=== PATIENT | female | born 1980 | race Caucasian/White ===

== ENCOUNTER 2020-04-22 14:50 | Outpatient (CLI) | payer OTHER | END 2020-04-22 14:51 | disposition home or self-care (01) | LOC: DTY/OP 14:50 | PROVIDERS: ATTEND Specialist | DX: Z01.818 Encounter for other preprocedural examination (principal); E66.01 Morbid (severe) obesity due to excess calories | CPT/HCPCS: 97802 ==

== ENCOUNTER 2020-07-30 10:30 | Inpatient (IN) | payer OTHER ==
[2020-08-03 13:43] VITALS: BMI 35.4
[2020-08-04] MEDS ORDERED: cefOXitin Sodium/Dextrose 2 GM/50 ML BAG ONE (05:56)
[2020-08-04] MEDS ORDERED: Ketorolac Tromethamine 30 MG/ML VIAL ONE (05:56)
[2020-08-04] MEDS ORDERED: Heparin 5,000 UNITS/ML VIAL ONE (05:56)
[2020-08-04] MEDS ORDERED: Scopolamine 1.5 mg/72 hour Patch ONE (05:56)
[2020-08-04] MEDS ORDERED: Acetaminophen 500 MG TAB ONE (05:56)
[2020-08-04] MEDS ORDERED: Fentanyl 100 MCG/2 ML VIAL ONE ×4 (06:42→14:07)
[2020-08-04] MEDS ORDERED: Ketamine 50 MG/ML (10ML VIAL) ONE (06:42)
[2020-08-04] MEDS ORDERED: SUGAMMADEX SODIUM 200 MG/2 ML VIAL ONE (06:43)
[2020-08-04] MEDS ORDERED: Dexmedetomidine 200 MCG/2 ML VIAL ONE (06:43)
[2020-08-04] MEDS ORDERED: Lidocaine 1% w/Epinephrine 1:100K 20 ML VIAL ONE (06:45)
[2020-08-04] MEDS ORDERED: Bupivacaine 0.25% HCL 30 ML VIAL ONE (06:45)
[2020-08-04] MEDS ORDERED: Propofol 500 MG/50 ML VIAL ONE (07:18)
[2020-08-04] MEDS ORDERED: Propofol 1,000 MG/100 ML VIAL IV ONE ×2 (07:18→08:21)
[2020-08-04] MEDS ORDERED: Midazolam HCl 2 mg/2 ml Vial ONE (07:21)
[2020-08-04] MEDS ORDERED: ePHEDrine Sulfate 50 MG/10 ML VIAL ONE (07:30)
[2020-08-04] MEDS ORDERED: Dexamethasone 20 MG/5 ML VIAL ONE (07:30)
[2020-08-04] MEDS ORDERED: Rocuronium Bromide 10 MG/ML (10ML VIAL) ONE (07:30)
[2020-08-04] MEDS ORDERED: PROPOFOL 200 MG/20 ML VIAL ONE (07:30)
[2020-08-04] MEDS ORDERED: Glycopyrrolate 0.2 MG/ML 5 ML SYRINGE ONE (07:30)
[2020-08-04] MEDS ORDERED: Ondansetron PF 4 MG/2 ML Vial ONE ×2 (07:30→10:21)
[2020-08-04] MEDS ORDERED: Lidocaine 1% PF 5 ML VIAL ONE (07:30)
[2020-08-04] MEDS ORDERED: Ondansetron HCl/PF 4 MG/2 ML Vial IVP PRN (08:15)
[2020-08-04] MEDS ORDERED: HYDROmorphone 2 MG/ML VIAL SLOW IVP PRN (08:15)
[2020-08-04] MEDS ORDERED: Promethazine HCl 25 MG/ML VIAL SLOW IVP PRN (08:15)
[2020-08-04] MEDS ORDERED: diphenhydrAMINE 50 MG/ML VIAL IVP PRN (10:03)
[2020-08-04] MEDS ORDERED: Morphine 4 MG/ML VIAL SLOW IVP PRN ×3 (10:03→15:49)
[2020-08-04] MEDS ORDERED: Ondansetron PF 4 MG/2 ML Vial IVP PRN (10:03)
[2020-08-04] MEDS ORDERED: Dextrose 5% in Water 1,000 ML IV PRN (10:03)
[2020-08-04] MEDS ORDERED: Morphine 2 MG/ML VIAL SLOW IVP PRN (10:03)
[2020-08-04] MEDS ORDERED: hydrALAZINE 20 MG/ML VIAL SLOW IVP PRN (10:03)
[2020-08-04] MEDS ORDERED: Dextrose 50% Abboject 50 ML SYRINGE SLOW IVP PRN (10:03)
[2020-08-04] MEDS ORDERED: Hydrocodone-Acetamin 15 ML UDCUP PO PRN (10:03)
[2020-08-04] MEDS ORDERED: Promethazine HCl 25 MG/ML VIAL IM PRN (10:03)
[2020-08-04] MEDS ORDERED: Promethazine HCl 25 MG/ML VIAL ONE ×2 (10:25→13:41)
[2020-08-04] MEDS ORDERED: Pantoprazole 40 MG VIAL IVP SCH (10:30)
[2020-08-04] MEDS ORDERED: HYDROmorphone 2 MG/ML VIAL ONE (10:54)
[2020-08-04] MEDS ORDERED: Fentanyl 100 MCG/2 ML VIAL SLOW IVP PRN (15:36)
[2020-08-04] MEDS: Ketorolac Tromethamine 30 MG/ML VIAL IVP SCH ×3 (17:02→18:46)
[2020-08-04] MEDS: Ondansetron PF 4 MG/2 ML Vial IVP PRN ×2 (17:03→21:16)
[2020-08-04] MEDS: D5 1/2 NS w/20 mEq KCL 1,000 ML IV SCH ×2 (17:09→18:46)
[2020-08-04] MEDS ORDERED: Enoxaparin Sodium 40 MG/0.4 ML SYRINGE SC SCH (21:00)
[2020-08-04] MEDS ORDERED: Simethicone Chewable 80 MG TAB PO PRN (21:37)
[2020-08-05] MEDS: Ketorolac Tromethamine 30 MG/ML VIAL IVP SCH ×4 (00:11→05:55)
[2020-08-05] MEDS: D5 1/2 NS w/20 mEq KCL 1,000 ML IV SCH ×2 (00:12→08:14)
[2020-08-05 06:30] LABS: MDiff Complete? YES; Microcytosis SLIGHT = 6-15 cells (100X) (0-5/hpf)
[2020-08-05 06:31] LABS: #Lymphocytes 1.2 thou/uL (1.20-3.40); #Monocytes 0.8 thou/uL (0.11-0.59); #Neutrophils 9.5 thou/uL (1.40-6.50); %Basophils 0.2 % (0.0-1.0); %Lymphocytes 10.6 % (21.0-51.0); %Monocytes 7.3 % (0.0-10.0); %Neutrophils 81.9 % (42.0-75.0); Hemoglobin 9.9 g/dL (12.0-16.0); Mean Corpuscular HGB CONC 31.1 g/dL (32.0-36.0); Mean Corpuscular Hemoglobin 22.6 pg (27.0-31.0); Mean Corpuscular Volume 72.9 fL (78.0-98.0); Mean Platelet Volume 9.2 fL (7.4-10.4); Platelet Count 247 thou/uL (130-400); RBC Distribution Width 16.4 % (11.5-14.5); Red Blood Cell (RBC) Count 4.36 mill/uL (4.20-5.40); White Blood Cell (WBC) Count 11.5 thou/uL (4.8-10.8)
[2020-08-05 06:35] LABS: Anion Gap 10 mmol/L (10-20); BUN (Urea Nitrogen) 7 mg/dL (7.0-18.7); Calc. Creatinine Clearance 158 mL/min (70-130); Calcium 8.4 mg/dL (7.8-10.44); Carbon Dioxide 21 mmol/L (22-29); Chloride 110 mmol/L (98-107); Glucose 127 mg/dL (70-105); Potassium 3.9 mmol/L (3.5-5.1); Sodium 137 mmol/L (136-145)
[2020-08-05 08:17] VITALS: BP 100/67; TEMP 98.6
[2020-08-05] MEDS ORDERED: Pantoprazole 40 MG VIAL IVP SCH (09:00)
== END 2020-08-05 11:26 | disposition home or self-care (01) | DRG 621 ==
LOC: SURG A 08-04 05:45 → EDSTATUS 08-20 14:00
PROVIDERS: ADMIT Specialist; ATTEND Specialist
PROC: 0D164ZA Bypass Stomach to Jejunum, Percutaneous Endoscopic Approach (ICD-10-PCS; principal; 2020-08-04)
DX: E66.01 Morbid (severe) obesity due to excess calories (principal); Z20.822 Contact with and (suspected) exposure to COVID-19; F98.8 Other specified behavioral and emotional disorders with onset usually occurring in childhood and adolescence; F17.210 Nicotine dependence, cigarettes, uncomplicated; Z79.899 Other long term (current) drug therapy; Z79.890 Hormone replacement therapy; Z98.51 Tubal ligation status; Z82.49 Family history of ischemic heart disease and other diseases of the circulatory system; Z83.3 Family history of diabetes mellitus; Z80.9 Family history of malignant neoplasm, unspecified; Z68.37 Body mass index [BMI] 37.0-37.9, adult; Z88.5 Allergy status to narcotic agent
CPT/HCPCS: 36415; 80048; 85025; C9113; J0694; J1100; J1170; J1644; J1650; J1885; J2250; J2270; J2405; J2550; J2704; J3010; J3480; S0020

== ENCOUNTER 2020-07-30 10:57 | Outpatient (CLI) | payer OTHER ==
[2020-07-30 20:46] LABS: SARS-CoV-2 PCR by NAA Not Detected (NotDetected)
== END 2020-07-30 10:58 | disposition home or self-care (01) ==
LOC: LABBT 10:57
PROVIDERS: ATTEND Specialist
DX: Z01.818 Encounter for other preprocedural examination (principal); E66.9 Obesity, unspecified; Z20.822 Contact with and (suspected) exposure to COVID-19
CPT/HCPCS: 87635; 93005; 93010; U0003; U0005

== ENCOUNTER 2024-03-26 06:23 | Day surgery (SDC) | payer BC ==
[2024-03-26] MEDS ORDERED: Ketorolac Tromethamine 30 MG (1 mL) VIAL ONE (06:30)
[2024-03-26] MEDS ORDERED: Acetaminophen 500 MG TAB ONE (06:30)
[2024-03-26] MEDS ORDERED: Midazolam HCl 2 mg/2 ml Vial ONE (07:55)
[2024-03-26] MEDS ORDERED: PROPOFOL 20 ML ONE (07:59)
[2024-03-26] MEDS ORDERED: Lidocaine 1% PF 5 ML VIAL ONE (08:00)
[2024-03-26] MEDS ORDERED: fentaNYL 50 mcg/mL 1 mL Vial ONE ×3 (08:00→11:00)
[2024-03-26] MEDS ORDERED: Rocuronium Bromide 10 MG/ML (10ML VIAL) ONE (08:00)
[2024-03-26] MEDS ORDERED: EPINEPHrine 1 MG/ML VIAL ONE (08:21)
[2024-03-26] MEDS ORDERED: Bupivacaine 0.25% HCL 30 ML VIAL ONE (08:21)
[2024-03-26] MEDS ORDERED: CEFAZOLIN 1 GM VIAL ONE (08:51)
[2024-03-26] MEDS ORDERED: Ondansetron PF 4 MG/2 ML Vial ONE ×2 (08:56→10:13)
[2024-03-26] MEDS ORDERED: Dexamethasone 20 MG/5 ML VIAL ONE (08:56)
[2024-03-26] MEDS ORDERED: SUGAMMADEX SODIUM 200 MG/2 ML VIAL ONE (09:45)
[2024-03-26] MEDS ORDERED: Meperidine HCl/PF 25 MG (1 mL) VIAL ONE (10:07)
[2024-03-26] MEDS ORDERED: Promethazine HCl 25 MG/ML VIAL ONE (10:39)
[2024-03-26] MEDS ORDERED: HYDROcodone/Acetaminophen 5/325 mg Tablet ONE (12:40)
== END 2024-03-26 13:20 | disposition home or self-care (01) ==
LOC: SDC 06:23
PROVIDERS: ATTEND Specialist
PROC: 06BY0ZC Excision of Hemorrhoidal Plexus, Open Approach (ICD-10-PCS; principal; 2024-03-26)
DX: K64.8 Other hemorrhoids (principal); K64.4 Residual hemorrhoidal skin tags; Z79.899 Other long term (current) drug therapy; Z88.5 Allergy status to narcotic agent
CPT/HCPCS: J0171; J0665; J0690; J1100; J1885; J2175; J2250; J2405; J2550; J2704; J3010